=== PATIENT | male | born 1990 | race American Indian/Alaskan Native ===

== ENCOUNTER 2020-12-08 16:58 | Emergency (ER) | payer SELFPAY ==
[2020-12-08 17:33] VITALS: BP 132/74
--- NOTE | 2020-12-08 17:36 | Event Note ---
ED Screening Note Date of service: 12/08/20 Time: 17:35 ED Screening Note: 30-year-old male patient with history of appendectomy presents to the emergency department with complaints of diffuse abdominal cramps, nausea, vomiting, and diarrhea for 4 days. Patient is attributing his symptoms to a foodborne illness. States nobody else ate the same food he did prior to the onset of his symptoms. Patient does admit he smoked marijuana before he began feeling sick. No alcohol use reported. No current state or antibiotic use. No recent travel. Denies fever, chills, hematemesis, rectal bleeding, urinary symptoms, testicular pain/swelling. Denies all other complaints at this time. General: Awake, appropriately interactive, no acute distress. Neck: Supple. Full range of motion intact. Cardiovascular: Normal peripheral perfusion. Pulmonary: No respiratory distress. Patient is speaking normally without use of accessory muscles. Abdomen: Soft, non distended. Diffuse abdominal tenderness most pronounced along the epigastrium without guarding, rigidity, or rebound. Bowel sounds pre sent throughout. Skin: No apparent rashes or lesions. Neurological: No facial asymmetry. Speech is clear. Follows commands. Patient is alert and oriented. Musculoskeletal: Moves all four extremities spontaneously with normal range of motion. Psych: Cooperative. Appropriate mood and affect. I have greeted and performed a focused rapid initial assessment of this patient. A comprehensive ED assessment and evaluation of the patient, analysis of all test results, and completion of the medical decision-making process will be conducted by additional ED providers. This initial assessment/diagnostic orders/clinical plan/treatment(s) is/are subject to change based on patients health status, clinical progression and re-assessment. Further treatment and workup at subsequent clinical provider's discretion. Patient/guardian urged not to elope from the ED as their condition may be serious if not clinically assessed and managed.
[2020-12-08 18:19] LABS: Basophils % (Auto) 0.3 % (0.0-1.8); Eosinophils % (Auto) 0.1 % (0.0-4.3); Hematocrit 45.6 % (35.5-45.6); Hemoglobin 15.5 gm/dl (11.8-15.2); Lymphocytes # (Auto) 1.7 K/mm3 (1.2-5.4); Lymphocytes % (Auto) 26.1 % (13.4-35.0); Mean Corpuscular HGB Conc 34 % (32-34); Mean Corpuscular Volume 93 fl (84-94); Monocytes # (Auto) 0.9 K/mm3 (0.0-0.8); Monocytes % (Auto) 14.1 % (0.0-7.3); Platelet Count 188 K/mm3 (140-440); Red Blood Count 4.92 M/mm3 (3.65-5.03)
[2020-12-08 18:30] LABS: Alanine Aminotransferase 19 units/L (7-56); Albumin 4.3 g/dL (3.9-5); BUN/Creatinine Ratio 12; Blood Urea Nitrogen 12 mg/dL (9-20); Hemolysis Index 12
[2020-12-08] MEDS ORDERED: ONDANSETRON 4 MG ODT TAB PO ONE (20:56)
[2020-12-08] MEDS ORDERED: FAMOTIDINE 20 MG TAB PO ONE (20:56)
[2020-12-08] MEDS ORDERED: DICYCLOMINE 20 MG TAB PO ONE (20:56)
--- NOTE | 2020-12-08 21:01 | Emergency Department Report ---
ED N/V/D HPI - General Chief complaint: Abdominal Pain Stated complaint: ABD PAIN/VOMITING Source: patient Mode of arrival: Ambulatory Limitations: No Limitations - History of Present Illness Initial comments: Patient is a 30-year-old -Japanese male with no past medical history presents to the ED with complaint of acute onset persistent intermittent nausea and vomiting with diarrhea and diffuse abdominal pain for the last 3 days. Patient states that these symptoms started after eating at a restaurant and have been persistent and intermittent since then. Patient states that he has not been able to keep anything down as each time he eats anything he has nausea and vomiting and diarrhea. Patient states that no one else at home is had similar symptoms. Patient denies dizziness, syncope, chest pain, shortness of breath, sore throat, headache, lightheadedness, dysuria, urinary frequency and urgency, hematemesis, hematochezia, testicular pain, cough, fever and chills. MD complaint: nausea, vomiting, diarrhea, abdominal pain -: Sudden, days(s) (3) Description of Vomiting: food contents, watery, bilious Description of Diarrhea: water Associated Abdominal Pain: Yes (Diffuse) Location: diffuse Radiation: none Severity: moderate Pain Scale: 4 Quality: cramping, aching Consistency: intermittent Improves with: none Worsens with: eating, vomiting Context: possible food poisoning Associated Symptoms: denies other symptoms. denies: myalgias, chest pain, cough, diaphoresis, fever/chills, headaches, malaise, nausea/vomiting, rash, dysuria, shortness of breath, syncope, weakness, other - Related Data Previous Rx's Medication Instructions Recorded Last Taken Type Dicyclomine [Bentyl] 20 mg PO Q6H PRN #30 tablet 12/08/20 Unknown Rx Famotidine [Pepcid] 20 mg PO BID #30 tablet 12/08/20 Unknown Rx Ondansetron [Zofran Odt] 4 mg PO Q6HR PRN #20 tab.rapdis 12/08/20 Unknown Rx ED Review of Systems ROS: Stated complaint: ABD PAIN/VOMITING Other details as noted in HPI Constitutional: denies: chills, fever Eyes: denies: eye pain, eye discharge, vision change ENT: denies: ear pain, throat pain Respiratory: denies: cough, shortness of breath, wheezing Cardiovascular: denies: chest pain, palpitations Endocrine: no symptoms reported Gastrointestinal: abdominal pain, nausea, vomiting, diarrhea Genitourinary: denies: urgency, dysuria Musculoskeletal: denies: back pain, joint swelling, arthralgia Skin: denies: rash, lesions Neurological: denies: headache, weakness, numbness, paresthesias, confusion, abnormal gait, vertigo Psychiatric: denies: anxiety, depression Hematological/Lymphatic: denies: easy bleeding, easy bruising ED Past Medical Hx - Past Medical History Previous Medical History?: No - Surgical History Past Surgical History?: Yes Hx Appendectomy: Yes - Medications Home Medications: Home Medications Medication Instructions Recorded Confirmed Last Taken Type Dicyclomine [Bentyl] 20 mg PO Q6H PRN #30 tablet 12/08/20 Unknown Rx Famotidine [Pepcid] 20 mg PO BID #30 tablet 12/08/20 Unknown Rx Ondansetron [Zofran Odt] 4 mg PO Q6HR PRN #20 tab.rapdis 12/08/20 Unknown Rx ED Physical Exam - General Limitations: No Limitations General appearance: alert, in no apparent distress - Head Head exam: Present: atraumatic, normocephalic, normal inspection - Eye Eye exam: Present: normal appearance, PERRL, EOMI Pupils: Present: normal accommodation - ENT ENT exam: Present: normal exam, normal orophraynx, mucous membranes moist, TM's normal bilaterally, normal external ear exam - Neck Neck exam: Present: normal inspection, full ROM. Absent: tenderness - Respiratory Respiratory exam: Present: normal lung sounds bilaterally. Absent: respiratory distress, wheezes, rales, rhonchi, stridor, chest wall tenderness, accessory muscle use, decreased breath sounds, prolonged expiratory - Cardiovascular Cardiovascular Exam: Present: regular rate, normal rhythm, normal heart sounds. Absent: systolic murmur, diastolic murmur, rubs, gallop - GI/Abdominal GI/Abdominal exam: Present: soft, normal bowel sounds. Absent: tenderness, guarding, rebound, hyperactive bowel sounds, hypoactive bowel sounds, mass - Extremities Exam Extremities exam: Present: normal inspection, full ROM, normal capillary refill - Back Exam Back exam: Present: normal inspection, full ROM. Absent: tenderness, CVA tenderness (R), CVA tenderness (L), muscle spasm, paraspinal tenderness, vertebral tenderness - Neurological Exam Neurological exam: Present: alert, oriented X3, CN II-XII intact, normal gait, reflexes normal - Psychiatric Psychiatric exam: Present: normal affect, normal mood - Skin Skin exam: Present: warm, dry, intact, normal color. Absent: rash ED Course Vital Signs 12/08/20 17:31 Temperature 98.1 F Pulse Rate 74 Respiratory 16 Rate Blood Pressure 132/74 [Right] O2 Sat by Pulse 97 Oximetry ED Medical Decision Making - Lab Data Result diagrams: 12/08/20 17:41 12/08/20 17:41 - Medical Decision Making This is a 30-year-old -Japanese male with no past medical history presents to the ED with complaint of acute onset persistent intermittent nausea and vomiting with diarrhea and diffuse abdominal pain for the last 3 days. Patient states that these symptoms started after eating at a restaurant and have been persistent and intermittent since then. Patient states that he has not been able to keep anything down as each time he eats anything he has nausea and vomiting and diarrhea. Patient states that no one else at home is had similar symptoms. In the ED, patient is alert and oriented x3 and is not in distress. Patient is hemodynamically stable. Lab test results were reviewed and are all nonactionable. Based on the history and physical exam findings as well as lab test results, patient symptoms are likely due to viral gastroenteritis after eating at a restaurant food that may have been contaminated. Patient was treated for nausea and vomiting and also given antacids and antispasmodic medications. Patient was discharged home on medications and advised to follow- up with his primary care physician in 5 to 7 days for reevaluation. Patient was also advised to maintain a clear liquid diet for 12 to 24 hours while taking medication as needed and to drink plenty of fluids. Patient was advised return to the ED immediately if symptoms get worse. - Differential Diagnosis Gastroenteritis; GERD; gastritis; dehydration Critical care attestation.: If time is entered above; I have spent that time in minutes in the direct care of this critically ill patient, excluding procedure time. ED Disposition Clinical Impression: Viral gastroenteritis, Nausea, vomiting and diarrhea Abdominal pain Qualifiers: Abdominal location: generalized Qualified Code(s): R10.84 - Generalized abdominal pain Disposition: - TO HOME OR SELFCARE Is pt being admited?: No Does the pt Need Aspirin: No Condition: Stable Instructions: Viral Gastroenteritis, Adult, [id number], Abdominal Pain, Adult, [id number], Nausea and Vomiting, Adult, [id number], Diarrhea, Adult, [id number] Additional Instructions: All lab test results were reviewed and are all nonactionable. Therefore maintain a clear liquid diet for 12 to 24 hrs., take medication as needed for nausea and vomiting and pain, follow-up with your primary care physician in 5 to 7 days for reevaluation. Return to the ED immediately if symptoms get worse. Prescriptions: Dicyclomine [Bentyl] 20 mg PO Q6H PRN #30 tablet PRN Reason: Abdominal pain Famotidine [Pepcid] 20 mg PO BID #30 tablet Ondansetron [Zofran Odt] 4 mg PO Q6HR PRN #20 tab.rapdis PRN Reason: Nausea And Vomiting Referrals: [facility] [Provider Group] - 3-5 Days Forms: Work/School Release Form(ED) Time of Disposition: 21:01 Print Language: AZERI
== END 2020-12-08 21:35 | disposition home or self-care (01) ==
LOC: ED 16:58
DX: A08.4 Viral intestinal infection, unspecified (principal); R10.9 Unspecified abdominal pain; R11.2 Nausea with vomiting, unspecified; R19.7 Diarrhea, unspecified; Z79.899 Other long term (current) drug therapy; Z90.49 Acquired absence of other specified parts of digestive tract
CPT/HCPCS: 36415; 80053; 83690; 83735; 85025; Q0162